=== PATIENT | female | born 1945 | race Caucasian/White ===

== ENCOUNTER 2017-10-29 07:25 | Inpatient (IN) | payer MEDICARE ==
[~2017-10-29] VITALS: Ht 152.4 cm; Wt 97.6 kg
[~2017-10-29 07:25] MED LIST: BIOT1CHW PO; CALC1TAB87 PO; COQ-100C5 PO; CYAN1TAB27 SL; DENO60P SQ; KRIL1CAP24 PO; LISI-515 PO; MIRA3350 PO; MONT10TA4 PO; MULTTAB67 PO; PANT40TA3 PO; RANI150T PO; SUCR1TAB PO; TRAM50TA PO; TYLE325T PO
[2017-10-29] MEDS ORDERED: POVIDONE IODINE 5% (ANTISEPSIS KIT) 4 APPLICATIONS EACH NARE PRN (08:15)
[2017-10-29] MEDS ORDERED: CHLORHEXIDINE GLUCONATE 2 % 1 PACK (2 CLOTHS) TOPICAL PRN (08:15)
[2017-10-29] MEDS ORDERED: ONDANSETRON HCL 4 MG/2 ML VIAL IV PUSH SCH (08:15)
[2017-10-29] MEDS ORDERED: METOPROLOL TARTRATE 25 MG TAB PO PRN (08:15)
[2017-10-29] MEDS ORDERED: INSULIN HUMAN REGULAR 1,000 UNITS/10 ML VIAL SQ PRN (08:15)
[2017-10-29] MEDS ORDERED: SODIUM CHLORID 0.9% 500 ML IV PRN (08:15)
[2017-10-29] MEDS ORDERED: ACETAMINOPHEN 1000 MG/100 ML 100 ML IV SCH (08:15)
[2017-10-29] MEDS ORDERED: ceFAZolin 2 GM PREMIX 50 ML IV SCH (08:15)
[2017-10-29] MEDS ORDERED: LACTATED RINGER'S 1000 ML IV PRN (08:15)
[2017-10-29] MEDS ORDERED: BUPIVACAINE/EPINEPHRINE 0.5% PF 10 ML VIAL ONE (10:56)
[2017-10-29] MEDS ORDERED: ROCURONIUM INJ 50 MG/5 ML SYRINGE IV PUSH ONE (12:00)
[2017-10-29] MEDS ORDERED: GLYCOPYRROLATE 1 MG/5 ML SYRINGE IV PUSH ONE (12:00)
[2017-10-29] MEDS ORDERED: PHENYLEPH/NS 1000 MCG/10 ML SYR IV ONE (12:00)
[2017-10-29] MEDS ORDERED: ONDANSETRON HCL 4 MG/2 ML VIAL IV ONE (12:00)
[2017-10-29] MEDS ORDERED: PROPOFOL 200 MG/20 ML AMP IV ONE (12:00)
[2017-10-29] MEDS ORDERED: LIDOCAINE HCL 1% PF 5 ML SYRINGE OTHER ONE (12:00)
[2017-10-29] MEDS ORDERED: NEOSTIGMINE 5 MG/5 ML SYRINGE IV PUSH ONE (12:00)
[2017-10-29] MEDS: SODIUM CHLOR 0.9% 1000 ML INJ 1,000 ML IV SCH (13:43)
[2017-10-29] MEDS ORDERED: MAGNESIUM HYDROXIDE SUSP 30 ML CUP PO PRN (13:45)
[2017-10-29] MEDS ORDERED: MORPHINE SULFATE 4 MG/ML INJ IV PUSH PRN (13:45)
[2017-10-29] MEDS ORDERED: Post-op Orders (for Pharmacy) XX ONE (13:45)
[2017-10-29] MEDS ORDERED: ONDANSETRON HCL 4 MG/2 ML VIAL IV PUSH PRN (13:45)
[2017-10-29] MEDS ORDERED: SODIUM CHLORIDE 0.9% FLUSH 10 ML FLUSH IV FLUSH PRN (13:45)
[2017-10-29] MEDS ORDERED: ACETAMINOPHEN/HYDROcodone 325 MG/5 MG TAB PO PRN (13:45)
[2017-10-29] MEDS ORDERED: DO NOT ADM ANY ANTICOAGULANT DRUGS PRN (14:13)
[2017-10-29] MEDS ORDERED: *morphine SULFATE 4 MG/ML PERIprocedure ONLY ONE ×3 (14:15→14:29)
[2017-10-29] MEDS ORDERED: *HYDROmorphone PF 0.5 MG/0.5 ML PERIprocedure ONLY ONE ×3 (14:34→16:09)
[2017-10-29] MEDS: ACETAMINOPHEN/HYDROcodone 325 MG/5 MG TAB PO PRN ×2 (16:46→20:40)
[2017-10-29 19:41] VITALS: BP 121/57; PULSE 96; RESP 16; TEMP 97.5; O2SAT 95
[2017-10-29] MEDS: SODIUM CHLORIDE 0.9% FLUSH 10 ML FLUSH IV FLUSH SCH (20:38)
[2017-10-29] MEDS: LISINOPRIL 20 MG TAB PO SCH (20:39)
[2017-10-29] MEDS: FAMOTIDINE 20 MG TAB PO SCH (20:39)
[2017-10-29] MEDS: DOCUSATE SODIUM 100 MG CAP PO SCH (20:39)
[2017-10-30 00:01] VITALS: BP 159/70; PULSE 108; RESP 19; TEMP 98.4; O2SAT 97
[2017-10-30] MEDS: ACETAMINOPHEN/HYDROcodone 325 MG/5 MG TAB PO PRN ×4 (00:23→19:10)
[2017-10-30] MEDS: SODIUM CHLOR 0.9% 1000 ML INJ 1,000 ML IV SCH ×3 (00:25→17:15)
[2017-10-30 04:00] VITALS: BP 173/72; PULSE 102; RESP 19; TEMP 98.5; O2SAT 96
[2017-10-30 08:00] VITALS: BP 172/72; PULSE 102; RESP 18; TEMP 99.2; O2SAT 96
[2017-10-30] MEDS: DOCUSATE SODIUM 100 MG CAP PO SCH ×2 (08:09→22:27)
[2017-10-30] MEDS: FAMOTIDINE 20 MG TAB PO SCH ×2 (08:09→22:27)
[2017-10-30] MEDS: SODIUM CHLORIDE 0.9% FLUSH 10 ML FLUSH IV FLUSH SCH ×2 (08:09→22:27)
[2017-10-30] MEDS: SUCRALFATE 1 GM TAB PO SCH (08:12)
--- NOTE | 2017-10-30 08:43 | HHI.PR ---
Subjective Subjective Notes Tolerating PO No flatus yet Normal post-operative course Objective Vitals/I&O Vital Signs Date Time Temp Pulse Resp B/P (MAP) Pulse Ox O2 Delivery O2 Flow Rate FiO2 10/30/17 04:00 98.5 102 19 173/72 (105) 96 10/29/17 21:50 Nasal Cannula 3.00 Abdomen: Post-op tenderness Extremities: Perfused Wound Wound : Wound Location: Abdomen Appearance: Clean & Dry A/P Assessment and Plan 72yo F POD#1 umbilical hernia repair with mesh -Continue with clears -Continue with frequent ambulation Discharge Planning Can possibly D/C home this afternoon depending on course Amy Swartz October 30, 2017 08:43
[2017-10-30 12:00] VITALS: BP 137/63; PULSE 101; RESP 18; TEMP 98.8; O2SAT 95
[2017-10-30] MEDS: ENOXAPARIN SODIUM 40 MG/0.4 ML SYRINGE SQ SCH (12:58)
[2017-10-30 15:16] VITALS: BP 132/61; PULSE 101; RESP 18; TEMP 99.5; O2SAT 93
[2017-10-30 20:00] VITALS: BP 149/68; PULSE 104; RESP 19; TEMP 98.9; O2SAT 98
[2017-10-30] MEDS: LISINOPRIL 20 MG TAB PO SCH (22:27)
[2017-10-31 00:01] VITALS: BP 153/69; PULSE 103; RESP 19; TEMP 99.2; O2SAT 94
[2017-10-31] MEDS: ACETAMINOPHEN/HYDROcodone 325 MG/5 MG TAB PO PRN ×3 (00:22→14:40)
[2017-10-31] MEDS: SODIUM CHLOR 0.9% 1000 ML INJ 1,000 ML IV SCH ×2 (05:43→10:37)
[2017-10-31 08:00] VITALS: BP 174/70; PULSE 103; RESP 15; TEMP 98.8; O2SAT 95
[2017-10-31 08:31] VITALS: O2SAT 95
[2017-10-31] MEDS: FAMOTIDINE 20 MG TAB PO SCH (09:36)
[2017-10-31] MEDS: DOCUSATE SODIUM 100 MG CAP PO SCH (09:36)
[2017-10-31] MEDS: SUCRALFATE 1 GM TAB PO SCH (09:36)
[2017-10-31] MEDS: SODIUM CHLORIDE 0.9% FLUSH 10 ML FLUSH IV FLUSH SCH (09:38)
[2017-10-31 11:47] VITALS: BP 139/75; PULSE 97; RESP 16; TEMP 98.2; O2SAT 98
--- NOTE | 2017-10-31 13:36 | HHI.PR ---
Subjective Subjective Notes Pain improved Tolerating clears Positive flatus Objective Vitals/I&O Vital Signs Date Time Temp Pulse Resp B/P (MAP) Pulse Ox O2 Delivery O2 Flow Rate FiO2 10/31/17 11:47 98.2 97 16 139/75 (96) 98 10/31/17 08:31 Nasal Cannula 2.00 Abdomen: Post-op tenderness Extremities: Perfused Wound Wound : Wound Location: Abdomen Appearance: Clean & Dry A/P Assessment and Plan 72yo F POD#2 umbilical hernia repair with mesh -Advance diet at home to fulls, soft, then regular as tolerated -Continue with frequent ambulation Discharge Planning D/C home today Amy Swartz October 31, 2017 13:36
[2017-10-31] MEDS: ENOXAPARIN SODIUM 40 MG/0.4 ML SYRINGE SQ SCH (14:39)
--- NOTE | 2017-11-11 08:39 | MP ---
cc: Alfonzo Lan MD DATE OF OPERATION: 10/29/2017 PREOPERATIVE DIAGNOSIS: Incisional hernia. POSTOPERATIVE DIAGNOSIS: Incisional hernia. PROCEDURE PERFORMED: Laparoscopic repair of incisional hernia with Ventralight mesh with Echo deployment system, 6 x 8 inches. SURGEON: Alfonzo Lan MD ANESTHESIA: General endotracheal. ESTIMATED BLOOD LOSS: Scant. FINDINGS: The patient had a midline defect with omentum stuck within it. She had omentum adhesed to the abdominal wall as well. SPECIMENS: None. COMPLICATIONS: None. OPERATION: The patient was brought to the operating room, placed on the operating table in supine position. Bilateral sequential inflation device placed on lower extremities. General anesthesia instituted, antibiotics initiated. Abdomen was prepped and draped sterilely. A point in the left upper quadrant anesthetized with 0.25% Marcaine with epinephrine. A skin incision was made, 5 mm Optiview port placed under direct vision. Pneumoperitoneum created. Under direct vision, a 5 mm left lower quadrant port and a 5 mm suprapubic port was placed. Prior to placement of all ports, the skin and peritoneum were anesthetized with 0.25% Marcaine with epinephrine. The patient had omentum adhesed to the abdominal wall with incarcerated omentum within the hernia defect. This was taken down using blunt and sharp dissection as well as using the Harmonic scalpel. Once the defect was dissected and identified, 2 additional ports were placed, one in the right upper quadrant and one in the right lower quadrant. Stab incision was then made over the defect and the fascial edges were approximated with #2 Vicryl in a [id number] manner. A 6 x 8 inch Ventralight mesh with deployment system opened on the back field and introduced into the abdominal cavity through the 12 mm medial port site in the right upper quadrant. It was then deployed to cover the defect. Care was taken to center the defect, leaving a 4 cm overlap circumferentially. Once the mesh was deployed, SecureStraps were used to further secure the mesh. These were placed 2 cm apart circumferentially. An additional inner layer was placed as well. The deployment device was then removed from the peritoneal cavity. The mesh appeared to lie well without signs of crumpling. The mesh was deployed at a pressure of 8 mmHg. Once this was done, the operative field was inspected and hemostasis was present. CO2 was released. All ports were removed. All skin incisions were then closed with 4-0 Monocryl. The abdominal wall was cleaned and sterile dressing placed. The patient was awakened and taken to the recovery room. MD ESME Moncada/SAGE , 06:55 PM , 07:26 PM
== END 2017-10-31 16:13 | disposition home or self-care (01) | DRG 355 ==
LOC: HSDC 07:25 → HSDI 13:46 → N06A 16:46 → OBSVTOIN 10-30 21:21
PROVIDERS: ADMIT Surgery; ATTEND Surgery
PROC: 0WUF4JZ Supplement Abdominal Wall with Synthetic Substitute, Percutaneous Endoscopic Approach (ICD-10-PCS; principal; 2017-10-30)
DX: K43.2 Incisional hernia without obstruction or gangrene (principal); K42.9 Umbilical hernia without obstruction or gangrene
CPT/HCPCS: 94150; 96365; C1781; G0378; J0690; J1170; J1650; J2270; J2370; J2405; J2710; J3010; J7030; J7120